=== PATIENT | male | born 1965 | race Caucasian/White ===

== ENCOUNTER 2017-10-07 14:15 | Emergency (ER) | payer OTHER ==
[2017-10-07] MEDS ORDERED: Morphine 4 MG/ML VIAL ONE (15:22)
[2017-10-07] MEDS ORDERED: Ondansetron HCl/PF 4 MG/2 ML Vial ONE (15:23)
[2017-10-07 15:48] LABS: #Eosinphils 0.2 thou/uL (0.0-0.7); #Lymphocytes 1.9 thou/uL (1.20-3.40); #Monocytes 0.6 thou/uL (0.11-0.59); #Neutrophils 4.1 thou/uL (1.40-6.50); %Basophils 0.4 % (0.0-1.0); %Eosinophils 2.7 % (0.0-10.0); %Lymphocytes 27.3 % (21.0-51.0); Hematocrit 45.5 % (42.0-52.0); Red Blood Cell (RBC) Count 5.11 mill/uL (4.70-6.10); White Blood Cell (WBC) Count 6.8 thou/uL (4.8-10.8)
[2017-10-07 15:58] LABS: Bilirubin Negative (Negative); Blood, Urine Negative (Negative); Glucose, Urine (Dipstick) Negative (Negative); Ketone, Urine Negative (Negative); Nitrite Negative (Negative); Protein, Urine (Dipstick) Negative (Neg-Trace)
[2017-10-07 16:09] LABS: ALT (SGPT) 34 U/L (8-55); AST (SGOT) 24 U/L (5-34); Alkaline Phosphatase 62 U/L (40-150); Anion Gap 13 mmol/L (10-20); BUN (Urea Nitrogen) 11 mg/dL (8.9-20.6); Bilirubin, Total 0.6 mg/dL (0.2-1.2); Calc. Creatinine Clearance 0 mL/min (70-130); Calcium 9.4 mg/dL (7.8-10.44); Carbon Dioxide 25 mmol/L (22-29); Chloride 105 mmol/L (98-107); Estimated GFR-MDRD Greater than 90; Globulin 3.5 g/dL (2.4-3.5); Protein, Total 7.4 g/dL (6.0-8.3)
--- NOTE | 2017-10-07 17:57 | ULT ---
SCROTAL ULTRASOUND: Indication: Pain and swelling on left sided scrotum. Comparison: 09-05-16. FINDINGS: No intratesticular mass or torsion is evident involving the right testicle. There is a moderate sized left hydrocele. No intratesticular mass is seen involving the left kidney. There was a 5 mm epididym al head cyst seen on the right on the prior examination which now measures 2 mm in size. There is sli ght prominence of the left pampiniform plexus of valsalva suspicious for a left side vericocele. The right testicle measures 3.4 x 4.8 x 2.6 cm. Left testicle measures 3.7 x 4.9 x 2.7 cm. IMPRESSION: 1. Moderate left hydrocele. There is mild left sided vericocele. 2. No intratesticular mass or torsion. 3. Decrease in size of right epididymal head cyst seen on the prior exam. POS: [facility]
== END 2017-10-07 16:01 | disposition home or self-care (01) ==
LOC: ERS 14:15
DX: N43.3 Hydrocele, unspecified (principal); E11.9 Type 2 diabetes mellitus without complications; K21.9 Gastro-esophageal reflux disease without esophagitis; F17.220 Nicotine dependence, chewing tobacco, uncomplicated
CPT/HCPCS: 76870; 80053; 81003; 85025; 93976; 96374; 96375; J2270; J2405

== ENCOUNTER 2017-10-15 11:33 | Outpatient (CLI) | payer OTHER ==
[2017-10-15 12:31] LABS: Hematocrit 47.3 % (42.0-52.0); Mean Platelet Volume 7.8 fL (7.4-10.4); Red Blood Cell (RBC) Count 5.35 mill/uL (4.70-6.10); White Blood Cell (WBC) Count 6.9 thou/uL (4.8-10.8)
[2017-10-15 13:03] LABS: Anion Gap 13 mmol/L (10-20); BUN (Urea Nitrogen) 12 mg/dL (8.9-20.6); Calc. Creatinine Clearance 0 mL/min (70-130); Calcium 9.6 mg/dL (7.8-10.44); Carbon Dioxide 24 mmol/L (22-29); Chloride 104 mmol/L (98-107); Estimated GFR-MDRD 72
== END 2017-10-15 11:34 | disposition home or self-care (01) ==
LOC: LABBT 11:33
PROVIDERS: ATTEND Urology
DX: Z01.818 Encounter for other preprocedural examination (principal); N50.812 Left testicular pain
CPT/HCPCS: 80048; 85027; 93005; 93010; G0103

== ENCOUNTER 2017-10-16 07:10 | Day surgery (SDC) | payer OTHER ==
[2017-10-15 11:50] VITALS: BMI 40.8
[2017-10-16] MEDS ORDERED: CEFAZOLIN/Water 2 GM/20 ML SYRINGE ONE (07:45)
[2017-10-16] MEDS ORDERED: Bupivacaine 0.25% HCL 30 ML VIAL ONE (09:42)
[2017-10-16] MEDS ORDERED: Lidocaine 1% (PF) 30 ML VIAL ONE (09:42)
[2017-10-16] MEDS ORDERED: Fentanyl 100 MCG/2 ML VIAL ONE ×4 (09:45→12:40)
[2017-10-16 10:49] LABS: BF Reference Range Comment Note:
[2017-10-16] MEDS ORDERED: Bacitracin Zinc Ointment 30 gm TUBE ONE (11:08)
[2017-10-16] MEDS ORDERED: Meperidine HCl/PF 25 MG/ML VIAL ONE (12:56)
--- NOTE | 2017-10-16 12:57 | OP ---
DATE OF SERVICE: 10/16/2017 PREOPERATIVE DIAGNOSES: Left orchitis and left testicular pain. POSTOPERATIVE DIAGNOSES: Left orchitis and left testicular pain. PROCEDURE: Simple orchiectomy on the left. SURGEON: Lula Marques MD ANESTHESIA: General with endotracheal tube. 10 mL of Marcaine used for anesthetic locally. COMPLICATIONS: None. DRAINS: No drains remaining. FINDINGS: Significantly edematous and fatty cord, taking multiple ligations as well as what appeared to be lymph node associated with this area and also resected. SPECIMENS: Testicle and lymph node. BLOOD LOSS: Minimal. INDICATIONS: The patient is a 52-year-old male who was seen in the office for significant left testicular pain. He had an incidental hydrocele. Scrotal ultrasound confirmed no concerning mass and the first one was not consistent with epididymitis, but the second one showed slightly increased flow on the left that may have been the result of epididymitis, but again no mass was noted. Antibiotics were not helping, and the patient ws miserable. I did a cord block in the office, and he got significant--but temporary-- relief. At this point he preferred to just have resection. DESCRIPTION OF PROCEDURE: The patient was brought in the room by Anesthesia. He was positioned supine and his perineum was prepped and draped in sterile fashion. Using an incision in the scrotum horizontally, tissue was taken down to the tunica vaginalis and then bluntly dissected on the anterior portion of the scrotum before opening it up and sending some of the fluid for microscopic analysis and culture. The fluid appeared clear and yellow in nature and was unremarkable, but extended only due to the patient's concern for pain with possible infection. Then, I continued to open the tunica vaginalis and inspect the testicle itself. Other than a testicular appendage, it was unremarkable and so the testicle and the tunica vaginalis was then dissected free (together) from the scrotum by detaching the gubernaculum. I included the entire cord to the level of the proximal scrotum. Hemostasis was achieved on the scrotal component and then the significantly thickened cord was ligated in multiple sections using 2-0 and 3-0 PDS. Hemostasis was ensured. Further inspection of the stump/end of the cord, there was some thickening consistent with a lymph node, so I ligated this portion and sent the lymph node with the specimen. I coagulated this entire area. Again, hemostasis was ensured. The inside of the scrotum was evaluated. Any oozing was coagulated with electrocautery and the scrotum was copiously irrigated. Inspection of the cord stump again was done and it showed to have hemostasis. At this point, the dartos was reapproximated using 3-0 Vicryl; the skin was closed with 3-0 chromic in interrupted fashion. Bacitracin, sterile fluffs and a sterile support were then applied. The patient tolerated the procedure well and was then awakened and transferred to the PACU in stable condition. ALIREZA
[2017-10-16 13:35] LABS: BF Color Yellow
[2017-10-16 13:55] LABS: BF WBC/Nonhematics Ct. - Manua 433 /cumm
[2017-10-16 14:46] LABS: Number Cells Counted-Fluids 100
[2017-10-16] MEDS ORDERED: Ondansetron HCl/PF 4 MG/2 ML Vial ONE (16:07)
[2017-10-16] MEDS ORDERED: Dexamethasone 20 MG/5 ML VIAL ONE (16:07)
[2017-10-16] MEDS ORDERED: Lidocaine 1% PF 5 ML VIAL ONE (16:07)
[2017-10-16] MEDS ORDERED: Glycopyrrolate 0.2 MG/ML 5 ML SYRINGE ONE (16:07)
[2017-10-16] MEDS ORDERED: Propofol 200 MG/20 ML VIAL ONE (16:07)
== END 2017-10-16 15:47 | disposition home or self-care (01) ==
LOC: SDC 07:10
PROVIDERS: ATTEND Urology
PROC: 0VTB0ZZ Resection of Left Testis, Open Approach (ICD-10-PCS; principal; 2017-10-16)
DX: N45.2 Orchitis (principal); N50.812 Left testicular pain; K21.9 Gastro-esophageal reflux disease without esophagitis; E78.00 Pure hypercholesterolemia, unspecified; E11.9 Type 2 diabetes mellitus without complications; N43.3 Hydrocele, unspecified; Z79.899 Other long term (current) drug therapy; Z79.84 Long term (current) use of oral hypoglycemic drugs; Z98.890 Other specified postprocedural states
CPT/HCPCS: 85060; 87070; 87205; 88305; 89051; 96374; J1100; J2001; J2175; J2405; J2704; J3010; S0020

== ENCOUNTER 2021-01-17 02:44 | Observation (INO) | payer BC ==
[2021-01-17] MEDS ORDERED: Acetaminophen 325 MG TAB PO PRN (03:44)
[2021-01-17] MEDS ORDERED: Nitroglycerin 0.4 MG TAB (25 Tab Bottle) SL PRN (03:52)
[2021-01-17] MEDS ORDERED: Aspirin Chewable 81 MG TAB PO SCH ×2 (04:15→08:00)
[2021-01-17 04:43] VITALS: BMI 38.2
[2021-01-17 05:07] LABS: Troponin I Less than 0.010 ng/mL (< 0.028)
[2021-01-17] MEDS ORDERED: Dextrose 50% Abboject 50 ML SYRINGE SLOW IVP PRN (05:53)
[2021-01-17] MEDS ORDERED: Dextrose 5% in Water 1,000 ML IV PRN (05:53)
[2021-01-17] MEDS ORDERED: HumaLOG 300 UNITS/3 ML VIAL SC PRN (05:53)
[2021-01-17] MEDS: Nitroglycerin 2% Ointment 1 INCH/1 GM Packet TOP SCH ×2 (07:00→15:37)
[2021-01-17 07:54] LABS: Troponin I Less than 0.010 ng/mL (< 0.028)
[2021-01-17] MEDS ORDERED: FLU VACC QS2020-21(6MOS UP)/PF 60 MCG/0.5 ML SYRINGE IM ONE (09:00)
[2021-01-17] MEDS ORDERED: Enoxaparin Sodium 40 MG/0.4 ML SYRINGE SC SCH (09:00)
[2021-01-17] MEDS ORDERED: Lidocaine 2% Viscous Solution 20 ML, Aluminum & Magnesium Hydroxide 30 ML, Donnatal Eli... SSW SCH (13:15)
[2021-01-17 13:38] LABS: SARS-CoV-2 PCR by NAA Not Detected (NotDetected)
[2021-01-17 16:58] VITALS: BP 111/70; TEMP 97.7
== END 2021-01-17 17:25 | disposition home or self-care (01) ==
LOC: 2SW 02:44
PROVIDERS: ADMIT Student in an Organized Health Care Education/Training Program; ATTEND Hospitalist
DX: R07.89 Other chest pain (principal); E11.9 Type 2 diabetes mellitus without complications; E78.5 Hyperlipidemia, unspecified; K21.9 Gastro-esophageal reflux disease without esophagitis; E78.00 Pure hypercholesterolemia, unspecified; F17.220 Nicotine dependence, chewing tobacco, uncomplicated; E66.01 Morbid (severe) obesity due to excess calories; Z68.38 Body mass index [BMI] 38.0-38.9, adult; Z79.84 Long term (current) use of oral hypoglycemic drugs; Z79.899 Other long term (current) drug therapy; Z20.822 Contact with and (suspected) exposure to COVID-19
CPT/HCPCS: 36415; 36416; 78452; 87635; 90471; 90662; 90732; 93017; 93306; 96372; A9500; G0008; G0009; G0378; J1650; J1815; U0003; U0005

== ENCOUNTER 2024-04-08 16:00 | Outpatient (CLI) | payer BC | END 2024-04-08 16:01 | disposition home or self-care (01) | LOC: SLEEPLAB 16:00 | PROVIDERS: ATTEND Physician Assistant | DX: G47.33 Obstructive sleep apnea (adult) (pediatric) (principal); E66.9 Obesity, unspecified; E11.9 Type 2 diabetes mellitus without complications; Z68.38 Body mass index [BMI] 38.0-38.9, adult | CPT/HCPCS: 95800 ==